=== PATIENT | male | born 1970 | race Caucasian/White ===

== ENCOUNTER 2019-09-18 18:54 | Inpatient (IN) | payer BC, OTHER ==
[~2019-09-18] VITALS: Ht 170.2 cm; Wt 109.1 kg
[2019-09-18] MEDS ORDERED: MORPHINE SULFATE 4 MG/ML, 1ML ONE (19:20)
[2019-09-18] MEDS ORDERED: methylPREDNISolone SOD SUCC 125 MG/2 ML ONE (19:20)
[2019-09-18] MEDS ORDERED: SODIUM CHLORIDE FLUSH 10ML SYR IVF ONE (19:30)
[2019-09-18] MEDS ORDERED: methylPREDNISolone SOD SUCC 125 MG/2 ML IV ONE (19:30)
[2019-09-18] MEDS ORDERED: MORPHINE SULFATE 4 MG/ML, 1ML IVPush PRN (19:30)
[2019-09-18] MEDS ORDERED: ALBUTEROL/IPRATROPIUM 2.5MG/0.5MG, 3 ML NPPB SCH (19:30)
[2019-09-18] MEDS: PLEASE ENTER ALLERGIES MC SCH (19:30)
[2019-09-18 19:37] LABS: BASOPHILS # (AUTO) 0.05 x10^3/uL (0-0.1); BASOPHILS % (AUTO) 1 % (0-1); EOSINOPHILS # (AUTO) 0.35 x10^3/uL (0-0.4); EOSINOPHILS % (AUTO) 7 % (1-7); LYMPHOCYTES # (AUTO) 2.34 x10^3/uL (1-3.4); LYMPHOCYTES % (AUTO) 44 % (22-44); MD NO; MEAN CORPUSCULAR HEMOGLOBIN 34.1 pg (27.5-34.5); MEAN CORPUSCULAR HGB CONC 34.8 g/dL (33.2-36.2); MEAN PLATELET VOLUME 7.9 fL (7.4-10.4); MONOCYTES # (AUTO) 0.38 x10^3/uL (0.2-0.8); MONOCYTES % (AUTO) 7 % (2-9); NEUTROPHILS % (AUTO) 41 % (42-75); PLATELET COUNT 222 x10^3/uL (130-400); RED BLOOD COUNT 4.27 x10^6/uL (4.38-5.82); RED CELL DISTRIBUTION WIDTH 12.8 % (9.4-14.8)
[2019-09-18 19:42] LABS: ALBUMIN 3.4 g/dL (3.4-5.0); ANION GAP 14 mmol/L (5-15); CALCIUM 8.4 mg/dL (8.5-10.1); CHLORIDE 108 mmol/L (98-107)
[2019-09-18 19:46] LABS: RAPID INFLUENZA A Negative (Negative); RAPID INFLUENZA B Negative (Negative)
[2019-09-18 19:49] LABS: ALANINE AMINOTRANSFERASE 37 U/L (12-78); ALKALINE PHOSPHATASE 116 U/L (45-117); BILIRUBIN,TOTAL 0.2 mg/dL (0.2-1.0); CREATININE 0.94 mg/dL (0.7-1.3); TOTAL PROTEIN 6.9 g/dL (6.4-8.2); TROPONIN I < 0.015 ng/mL (0.000-0.045)
--- NOTE | 2019-09-18 20:21 | NUR ---
PT STATES PAIN IS BETTER BUT REQUESTING FOR PAIN MEDS. DR NOTIFIED. 3P'S ADDRESSED.
--- NOTE | 2019-09-18 20:42 | NUR ---
PT UP TO BEDSIDE URINAL. PT STEADY ON FEET.
[2019-09-18] MEDS ORDERED: GLUCAGON 1 MG IM PRN (21:00)
[2019-09-18] MEDS: methylPREDNISolone SOD SUCC 40 MG/ML IVPush SCH (21:00)
[2019-09-18] MEDS ORDERED: LORazepam 2 MG/ML, 1ML IV PRN ×5 (21:00)
[2019-09-18] MEDS ORDERED: DEXTROSE 4 GM TAB.CHEW PO PRN (21:00)
[2019-09-18] MEDS ORDERED: ONDANSETRON ODT 4 MG PO PRN (21:00)
[2019-09-18] MEDS ORDERED: ENOXAPARIN 40 MG/0.4 ML SQ SCH (21:00)
[2019-09-18] MEDS ORDERED: ENALAPRILAT 1.25 MG/ML, 2ML IVPush PRN (21:00)
[2019-09-18] MEDS ORDERED: LABETALOL 5MG/ML, 20ML IVPush PRN (21:00)
[2019-09-18] MEDS ORDERED: DEXTROSE 50%, 50ML SYRINGE IVPush PRN (21:00)
[2019-09-18] MEDS ORDERED: BISACODYL 10 MG SUPP PR PRN (21:00)
[2019-09-18] MEDS ORDERED: DOCUSATE 100 MG CAPSULE PO PRN (21:00)
[2019-09-18] MEDS ORDERED: AZITHROMYCIN 500 MG TABLET PO SCH (21:30)
[2019-09-18 22:55] VITALS: BP 151/76
[2019-09-18] MEDS ORDERED: AZITHROMYCIN 500 MG TABLET PO ONE (23:00)
[2019-09-18 23:27] LABS: TROPONIN I < 0.015 ng/mL (0.000-0.045)
[2019-09-18] MEDS: INSULIN LISPRO 100 UNITS/ML, PEN SQ-INSULIN SCH (23:50)
[2019-09-18] MEDS: KETOROLAC 30 MG/1 ML IV PRN (23:51)
[2019-09-18] MEDS: SODIUM CHLORIDE FLUSH 10ML SYR IVF SCH (23:51)
[2019-09-19 02:30] VITALS: BP 158/78
[2019-09-19] MEDS: PLEASE ENTER ALLERGIES MC SCH ×3 (03:30→16:51)
[2019-09-19] MEDS ORDERED: ALBUTEROL/IPRATROPIUM 2.5MG/0.5MG, 3 ML NPPB PRN (03:30)
[2019-09-19] MEDS: morphine SULFATE 10 MG/ML, 1ML IVPush PRN ×2 (03:54→11:34)
[2019-09-19 05:44] LABS: BASOPHILS # (AUTO) 0.01 x10^3/uL (0-0.1); BASOPHILS % (AUTO) 0 % (0-1); EOSINOPHILS # (AUTO) 0.01 x10^3/uL (0-0.4); EOSINOPHILS % (AUTO) 0 % (1-7); LYMPHOCYTES # (AUTO) 0.45 x10^3/uL (1-3.4); LYMPHOCYTES % (AUTO) 6 % (22-44); MD NO; MEAN CORPUSCULAR HEMOGLOBIN 33.8 pg (27.5-34.5); MEAN CORPUSCULAR HGB CONC 34.3 g/dL (33.2-36.2); MEAN CORPUSCULAR VOLUME 98.6 fL (81-97); MEAN PLATELET VOLUME 8.2 fL (7.4-10.4); MONOCYTES # (AUTO) 0.02 x10^3/uL (0.2-0.8); MONOCYTES % (AUTO) 0 % (2-9); NEUTROPHILS # (AUTO) 7.22 x10^3/uL (1.8-6.8); NEUTROPHILS % (AUTO) 94 % (42-75); PLATELET COUNT 196 x10^3/uL (130-400); RED BLOOD COUNT 4.46 x10^6/uL (4.38-5.82)
[2019-09-19 05:49] LABS: ALBUMIN 3.8 g/dL (3.4-5.0); CALCIUM 9.4 mg/dL (8.5-10.1); CHLORIDE 104 mmol/L (98-107)
[2019-09-19 05:52] LABS: ALANINE AMINOTRANSFERASE 46 U/L (12-78); ANION GAP 10 mmol/L (5-15); BILIRUBIN,TOTAL 0.8 mg/dL (0.2-1.0); CHOLESTEROL, TOTAL 327 mg/dL (140-239); CREATININE 0.84 mg/dL (0.7-1.3); TOTAL PROTEIN 7.6 g/dL (6.4-8.2); TRIGLYCERIDES 271 mg/dL (50-200); TROPONIN I < 0.015 ng/mL (0.000-0.045); VLDL CHOLESTEROL 54 mg/dL (0-25)
[2019-09-19 05:53] LABS: ALKALINE PHOSPHATASE 96 U/L (45-117); CHOL/HDL RATIO 5.2; HDL CHOL % 19 % (26-37); HDL CHOLESTEROL (DIRECT) 63 mg/dL (40-60); LDL CHOLESTEROL,CALCULATED 210 mg/dL (54-169); LDL/HDL RATIO 3.3 (0.5-3.0)
[2019-09-19] MEDS ORDERED: OMEPRAZOLE 20 MG CAPSULE.DR PO SCH (06:00)
[2019-09-19] MEDS: KETOROLAC 30 MG/1 ML IV PRN (06:59)
[2019-09-19 07:55] VITALS: BP 172/95
[2019-09-19] MEDS: methylPREDNISolone SOD SUCC 40 MG/ML IVPush SCH (08:57)
[2019-09-19] MEDS: INSULIN LISPRO 100 UNITS/ML, PEN SQ-INSULIN SCH ×3 (08:58→17:34)
[2019-09-19] MEDS: SODIUM CHLORIDE FLUSH 10ML SYR IVF SCH (08:59)
[2019-09-19] MEDS ORDERED: AZITHROMYCIN 250 MG TABLET PO SCH (09:00)
[2019-09-19] MEDS: ACETAMINOPHEN 325 MG TABLET PO PRN ×2 (11:22→15:54)
[2019-09-19] MEDS ORDERED: PRED10TA PO (13:43)
[2019-09-19] MEDS ORDERED: AZIT250T89 PO (13:43)
[2019-09-19] MEDS ORDERED: ATOR-2 PO (13:43)
[2019-09-19] MEDS ORDERED: METF500T PO (13:44)
[2019-09-19 13:59] VITALS: BP 164/99
[2019-09-19] MEDS ORDERED: ATORVASTATIN 80 MG TABLET PO SCH (21:00)
== END 2019-09-19 18:53 | disposition home or self-care (01) | DRG 192 ==
LOC: ED 20:45 → EDIP 21:18 → 5SO 22:32
PROVIDERS: ADMIT Family Medicine; ATTEND Family Medicine
DX: J44.1 Chronic obstructive pulmonary disease with (acute) exacerbation (principal); F17.210 Nicotine dependence, cigarettes, uncomplicated; E11.65 Type 2 diabetes mellitus with hyperglycemia; K21.9 Gastro-esophageal reflux disease without esophagitis; R07.2 Precordial pain; R10.13 Epigastric pain; E78.5 Hyperlipidemia, unspecified; I10 Essential (primary) hypertension; F10.10 Alcohol abuse, uncomplicated
CPT/HCPCS: 36415; 87400; 96374; 99285; J7620; 71045; 80053; 80061; 82947; 82962; 83036; 83735; 83880; 84443; 84484; 85025; 93005; 93306; 94640; G0378; J1650; J1885; J1815; J2270; J2920; J2930